=== PATIENT | male | born 1970 | race Caucasian/White ===

== ENCOUNTER 2016-12-15 10:25 | Emergency (ER) | payer SELFPAY ==
--- NOTE | 2016-12-15 11:38 | ER Document Report ---
ED Neck/Back Problem - General Chief Complaint: Neck Pain >24hrs old Stated Complaint: NECK PAIN Time Seen by Provider: 12/15/16 11:24 Mode of Arrival: Ambulatory Information source: Patient Notes: 46-year-old male presents to ED for severe neck pain this morning. He states he had surgery about a year ago with rods and pins in his neck for shoulder pain with numbness and tingling down his arms. He states he was got up this morning he was fine and then on his way to the work the pain was so bad that he felt like he was dizzy had hot and cold flashes and felt like he was going to pass out. He did not denies any fevers. Denies any injuries. TRAVEL OUTSIDE OF THE [place] IN LAST 30 DAYS: No - HPI Patient complains to provider of: Pain, Neck Onset: This morning Onset: Sudden Timing: Waxing and waning Quality of pain: Sharp, Stabbing Severity: Severe Pain Level: 5 Recent injury: No Associated symptoms: Other - Neck pain causing dizziness and hot and cold flashes Exacerbated by: Movement of neck - And palpation to the right side of the spine Relieved by: Nothing Similar symptoms previously: No Recently seen / treated by doctor: No - Related Data Allergies/Adverse Reactions: No Known Allergies Allergy (Verified 12/15/16 10:38) Past Medical History - General Information source: Patient - Social History Smoking Status: Current Every Day Smoker - Pack per day Cigarette use (# per day): Yes Smoking Education Provided: Yes - Less than 2 minutes Frequency of alcohol use: Heavy - 2 beers a day 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 Lives with: Spouse/Significant other Family History: Reviewed & Not Pertinent Patient has suicidal ideation: No Patient has homicidal ideation: No - Past Medical History Cardiac Medical History: Reports: Hx Hypercholesterolemia, Hx Hypertension Pulmonary Medical History: Reports: None EENT Medical History: Reports: None Neurological Medical History: Reports: None Endocrine Medical History: Reports: None Renal/ Medical History: Reports: None Malignancy Medical History: Reports None GI Medical History: Reports: None Musculoskeltal Medical History: Reports Hx Arthritis, Reports Hx Musculoskeletal Deformity, Reports Hx Musculoskeletal Trauma Skin Medical History: Reports None Psychiatric Medical History: Reports: None Traumatic Medical History: Reports: None Infectious Medical History: Reports: None Past Surgical History: Reports: Hx Orthopedic Surgery - L5-S1 laminectomy - Immunizations Hx Diphtheria, Pertussis, Tetanus Vaccination: No Review of Systems - Review of Systems Constitutional: No symptoms reported EENT: No symptoms reported Cardiovascular: No symptoms reported Respiratory: No symptoms reported Gastrointestinal: No symptoms reported Genitourinary: No symptoms reported Male Genitourinary: No symptoms reported Musculoskeletal: Muscle stiffness, Neck pain Skin: No symptoms reported Hematologic/Lymphatic: No symptoms reported Neurological/Psychological: No symptoms reported -: Yes All other systems reviewed and negative Physical Exam - Vital signs Vitals: Temp Pulse Resp BP Pulse Ox 97.9 F 95 18 192/120 H 97 12/15/16 10:37 12/15/16 10:37 12/15/16 10:37 12/15/16 10:37 12/15/16 10:37 Interpretation: Normal - General General appearance: Appears well, Alert - HEENT Head: Normocephalic, Atraumatic Eyes: Normal Pupils: PERRL - Respiratory Respiratory status: No respiratory distress Chest status: Nontender Breath sounds: Normal Chest palpation: Normal - Cardiovascular Rhythm: Regular Heart sounds: Normal auscultation Murmur: No - Abdominal Inspection: Normal Distension: No distension Bowel sounds: Normal Tenderness: Nontender Organomegaly: No organomegaly - Back Back: Normal, Tender - Cervical area, Vertebra tenderness - Cervical area. No: Deformity/step-off, CVA tenderness, Scars, Scoliosis, Wounds - Extremities General upper extremity: Normal inspection, Nontender, Normal color, Normal ROM , Normal temperature General lower extremity: Normal inspection, Nontender, Normal color, Normal ROM , Normal temperature, Normal weight bearing. No: Alba's sign - Neurological Neuro grossly intact: Yes Cognition: Normal Orientation: AAOx4 Garrett Coma Scale Eye Opening: Spontaneous Garrett Coma Scale Verbal: Oriented [place] Coma Scale Motor: Obeys Commands Garrett Coma Scale Total: 15 Speech: Normal Motor strength normal: LUE, RUE, LLE, RLE Sensory: Normal - Psychological Associated symptoms: Normal affect, Normal mood - Skin Skin Temperature: Warm Skin Moisture: Dry Skin Color: Normal Course - Re-evaluation Re-evalutation: 12/15/16 12:[address] with patient. He has no acute injuries noted. Patient will be instructed to follow-up with his surgeon who did his surgery last year. Patient will be discharged home with instructions to take ibuprofen. - Vital Signs Vital signs: Temp Pulse Resp BP Pulse Ox 98.1 F 80 14 180/90 H 100 12/15/16 12:51 12/15/16 12:51 12/15/16 12:51 12/15/16 12:51 12/15/16 12:51 - Diagnostic Test Radiology reviewed: Image reviewed, Reports reviewed Discharge - Discharge Clinical Impression: Neck pain Condition: Stable Disposition: HOME, SELF-CARE Instructions: Family Physicians / Practices Additional Instructions: You were seen today for neck pain. Your CT does not show any new changes or injuries. You will be discharged home today you need to call your surgeon who did your neck surgery when you go home to schedule a follow-up appointment due to the pain in your neck. You need to use ibuprofen or aspirin for the discomfort or you can use Aspercreme. A written report of your CT as well as a CD of your CT will be given to you free to follow-up with your primary doctor. USE OF [id number] IBUPROFEN: Ibuprofen (Advil, Nuprin, Medipren, Motrin IB) is a medication for fever and pain control. In addition, it has anti- inflammatory effects which may be beneficial, especially in the treatment of injuries. It's best to take ibuprofen with food. Persons with ulcer disease or allergy to aspirin should notify their physician of this before taking ibuprofen. Ibuprofen can be given every four to six hours, for a total of four doses daily. Age Pain or fever dose Antiinflammatory dose 6-8 yr 200 mg (1 tab) 200 mg (1 tab) 9-11 yr 200 mg (1 tab) 200-400 mg (1-2 tab) 11-14 yr 200-400 mg (1-2 tab) 400 mg (2 tab) 15-adult 400 mg (2 tab) 600 mg (3 tab) USE OF TYLENOL (ACETAMINOPHEN): Acetaminophen may be taken for pain relief or fever control. It's much safer than aspirin, offering a wider range of "safe" dosages. It is safe during . Some brand names are Tylenol, Panadol, Datril, Anacin 3, Tempra, and Liquiprin. Acetaminophen can be repeated every four hours. The following are maximum recommended dosages: WEIGHT Dose Drops Elixir Chewable( 80mg) (LBS.) drprs=droppers tsp=teaspoon 6 40 mg 0.4 ml (1/2) 6-11 80 mg 0.8 ml (full) tsp 1 tab 12-16 120 mg 1 1/2 drprs 3/4 tsp 1 1/2 tabs 17-23 160 mg 2 drprs 1 tsp 2 tabs 24-30 240 mg 3 drprs 1 1/2 tsp 3 tabs 30-35 320 mg 2 tsp 4 tabs 36-41 360 mg 2 1/4 tsp 4 1/2 tabs 42-47 400 mg 2 1/2 tsp 5 tabs 48-53 480 mg 3 tsp 6 tabs 54-59 520 mg 3 1/4 tsp 6 1/2 tabs 60-64 560 mg 3 1/2 tsp 7 tabs 65-70 600 mg 3 3/4 tsp 7 1/2 tabs 71-76 640 mg 4 tsp 8 tabs 77-82 720 mg 4 1/2 tsp 9 tabs 83-88 800 mg 5 tsp 10 tabs >89 pounds or adults 650 mg to 900 mg Acetaminophen can be repeated every four hours. Maximum dose not to exceed 4000 mg a day. These maximum recommended dosages are slightly higher than the dosages written on the product container, but these dosages are very safe and below the toxic dosage for acetaminophen. ICE PACKS: Apply ice packs frequently against the painful area. Many different schedules are recommended, such as "20 minutes on, 20 minutes off" or "one hour ice, two hours rest." If you need to work, you may need to go longer between ice treatments. You should plan to have the area ice packed AT LEAST one fourth of the time. The ice should be applied over the wrap, tape, or splint, or over a layer of cloth -- not directly against the skin. Some ice bags have a built-in cloth and can be put directly on the skin. WARM PACKS: After approximately two days, apply gentle heat (such as a heating pad or hot water bottle) for about 20 to 30 minutes about every two hours -- at least four times daily. Warmth and elevation will help you make a more rapid recovery , and will ease the pain considerably. Do not use HOT heat, and never apply heat for longer than 30 minutes. The continuous heat can invisibly damage skin and muscles -- even when no burn is seen on the surface. Damaged muscles can make you MORE sore. FOLLOW-UP CARE: If you have been referred to a physician for follow-up care, call the physician s office for an appointment as you were instructed or within the next two days. If you experience worsening or a significant change in your symptoms, notify the physician immediately or return to the Emergency Department at any time for re-evaluation. Forms: Elevated Blood Pressure, Smoking Cessation Education, Parent Work Note, Return to Work
--- NOTE | 2016-12-15 12:31 | RADIOLOGY REPORT (SQ) ---
EXAM DESCRIPTION: CT CERVICAL SPINE WITHOUT COMPLETED DATE/TIME: 12/15/2016 11:58 am REASON FOR STUDY: severe pain to neck COMPARISON: None. TECHNIQUE: Axial images acquired through the cervical spine without intravenous contrast. Images re viewed with lung, soft tissue and bone windows. Reconstructed coronal and sagittal MPR images review ed. Images stored on PACS. All CT scanners at this facility use dose modulation, iterative reconstruction, and/or weight based d osing when appropriate to reduce radiation dose to as low as reasonably achievable (ALARA). [facility]: Dose Right [facility]: CareDose [facility]: Dose Right [facility]: Teradose 4D [facility]: Smart Healcerion RADIATION DOSE: Up-to-date CT equipment and radiation dose reduction techniques were employed. CTDIv ol: 20.9 mGy. DLP: 437 mGy-cm. mGy. LIMITATIONS: None. FINDINGS: ALIGNMENT: Anatomic. MINERALIZATION: Normal. VERTEBRAL BODIES: No fractures or dislocation. DISCS: Craniocervical junction, C1-2, C2-3, C3-4 are unremarkable. At C4-5, minimal right paracentral disc bulging is present on axial image 40. No central stenosis. Mild right foraminal narrowing. No left foraminal narrowing. At C5-6, very mild diffuse posterior disc bulging is present without central stenosis or foraminal en croachment. At C6-7, patient is post fusion with hardware. Disc space prosthesis. Minimal posterior disc bulge and bony spurring is present without central stenosis. Mild bilateral foraminal narrowing from facet and uncovertebral hypertrophy. No lucency around the hardware worrisome for loosening. C7-T1 and T1-2 are unremarkable. Stomach FACETS, LATERAL MASSES, POSTERIOR ELEMENTS: No fractures. No dislocation. No acute findings. HARDWARE: Fusion at C6-7 as above. VISUALIZED RIBS: No fractures. LUNG APICES AND SOFT TISSUES: No significant or acute findings. OTHER: No other significant finding. IMPRESSION: No acute fracture or malalignment. Post fusion with hardware at C6-7. Mild bilateral foraminal narrowing at this level. TECHNICAL DOCUMENTATION: JOB ID: [id number] Quality ID # [id number]: Final reports with documentation of one or more dose reduction techniques (e.g., Au tomated exposure control, adjustment of the mA and/or kV according to patient size, use of iterative reconstruction technique) 2010 [employer] All Rights Reserved
[2016-12-15 12:53] VITALS: BP 180/90
== END 2016-12-15 12:53 | disposition home or self-care (01) ==
LOC: ER 10:25
DX: M54.2 Cervicalgia (principal); M25.519 Pain in unspecified shoulder; R42 Dizziness and giddiness; F17.210 Nicotine dependence, cigarettes, uncomplicated
CPT/HCPCS: 72125; 99284

== ENCOUNTER 2017-08-18 21:29 | Observation (INO) | payer BC ==
--- NOTE | 2017-08-18 22:06 | RADIOLOGY REPORT (SQ) ---
EXAM DESCRIPTION: CT HEAD WITHOUT COMPLETED DATE/TIME: 08/18/2017 9:54 pm REASON FOR STUDY: stroke alert COMPARISON: 2016 TECHNIQUE: Axial images acquired through the brain without intravenous contrast. Images reviewed wi th bone, brain and subdural windows. Additional sagittal and coronal reconstructions were generated. Images stored on PACS. All CT scanners at this facility use dose modulation, iterative reconstruction, and/or weight based d osing when appropriate to reduce radiation dose to as low as reasonably achievable (ALARA). [facility]: Dose Right [facility]: CareDose [facility]: Dose Right [facility]: Teradose 4D [facility]: Smart SpectraRep RADIATION DOSE: CT Rad equipment meets quality standard of care and radiation dose reduction techniq ues were employed. CTDIvol: 53.2 mGy. DLP: 911 mGy-cm. mGy. LIMITATIONS: None. FINDINGS: VENTRICLES: Normal size and contour. CEREBRUM: No masses. No hemorrhage. No midline shift. No evidence for acute infarction. Normal gra y/white matter differentiation. No areas of low density in the white matter. CEREBELLUM: No masses. No hemorrhage. No alteration of density. No evidence for acute infarction. EXTRAAXIAL SPACES: No fluid collections. No masses. ORBITS AND GLOBE: No intra- or extraconal masses. Normal contour of globe without masses. CALVARIUM: No fracture. PARANASAL SINUSES: Extensive ethmoid and maxillary sinus disease. SOFT TISSUES: No mass or hematoma. OTHER: No other significant finding. IMPRESSION: NORMAL BRAIN CT WITHOUT CONTRAST. EVIDENCE OF ACUTE STROKE: NO. COMMENT: Pertinent positive or negative findings of the imaging study reported as a CRITICAL EXAM t o ER PROVIDER at22:00 on 08/18/2017. Category of Critical Exam: Stroke alert Quality ID # [id number]: Final reports with documentation of one or more dose reduction techniques (e.g., Au tomated exposure control, adjustment of the mA and/or kV according to patient size, use of iterative reconstruction technique) TECHNICAL DOCUMENTATION: JOB ID: [id number] All Rights Reserved Reading location - IP/workstation name: [email or web address]
--- NOTE | 2017-08-18 22:07 | RADIOLOGY REPORT (SQ) ---
EXAM DESCRIPTION: CHEST SINGLE VIEW COMPLETED DATE/TIME: 08/18/2017 9:54 pm REASON FOR STUDY: stroke alert COMPARISON: None. EXAM PARAMETERS: NUMBER OF VIEWS: One view. TECHNIQUE: Single frontal radiographic view of the chest acquired. RADIATION DOSE: NA LIMITATIONS: None. FINDINGS: LUNGS AND PLEURA: No opacities, masses or pneumothorax. No pleural effusion. MEDIASTINUM AND HILAR STRUCTURES: No masses. Contour normal. HEART AND VASCULAR STRUCTURES: Heart normal in size. Normal vasculature. BONES: No acute findings. HARDWARE: None in the chest. OTHER: No other significant finding. IMPRESSION: NO ACUTE RADIOGRAPHIC FINDING IN THE CHEST. TECHNICAL DOCUMENTATION: JOB ID: [id number] [employer]- All Rights Reserved Reading location - IP/workstation name: [email or web address]
[2017-08-18 22:19] LABS: ABSOLUTE BASOPHILS # (AUTO) 0.1 10^3/uL (0.0-0.2); ABSOLUTE EOSINOPHILS # (AUTO) 0.2 10^3/uL (0.0-0.6); ABSOLUTE MONOCYTES (AUTO) 0.9 10^3/uL (0.1-1.4); ABSOLUTE NEUT (AUTO) 7.3 10^3/uL (1.7-8.2); BASOPHILS % (AUTO) 0.8 % (0-2); EOSINOPHILS % (AUTO) 2.1 % (0-6); HEMATOCRIT 44.3 % (37.9-51.0); HEMOGLOBIN 15.6 g/dL (13.5-17.0); LYMPHOCYTES % (AUTO) 18.7 % (13-45); MEAN CORPUSCULAR HEMOGLOBIN 32.1 pg (27.0-33.4); MEAN CORPUSCULAR HGB CONC 35.3 g/dL (32.0-36.0); MEAN CORPUSCULAR VOLUME 91 fl (80-97); MONOCYTES % (AUTO) 8.6 % (3-13); PLATELET COUNT 164 10^3/uL (150-450); RED BLOOD COUNT 4.88 10^6/uL (4.35-5.55); RED CELL DISTRIBUTION WIDTH 14.9 % (11.5-14.0); SEGMENTED NEUTROPHILS % (AUTO) 69.8 % (42-78); TOTAL CELLS COUNTED % (AUTO) 100 %; WHITE BLOOD COUNT 10.5 10^3/uL (4.0-10.5)
[2017-08-18] MEDS ORDERED: METOCLOPRAMIDE HCL INJ/PF 10 MG/2 ML SDV IV ONE (22:19)
[2017-08-18] MEDS ORDERED: DIPHENHYDRAMINE HCL 50 MG/ML VIAL IV ONE (22:19)
--- NOTE | 2017-08-18 22:19 | ER Document Report ---
ED General - General Chief Complaint: S/S of Possible Stroke Stated Complaint: FACIAL NUMBNESS Mode of Arrival: Ambulatory Information source: Patient Notes: This is a 47-year-old man with a history of high blood pressure, active smoking who presents to the emergency room with a right-sided headache along with some right facial numbness. Patient states he awoke this morning with the headache. He states he went to work and started having numbness to the right face at around 3 PM. He states it did not go away so he came in this evening. TRAVEL OUTSIDE OF THE [place] IN LAST 30 DAYS: No - HPI Onset: This morning Onset/Duration: Gradual Quality of pain: No pain Severity: None Pain Level: Denies Associated symptoms: denies: Chills, Headache, Shortness of breath Exacerbated by: Denies Relieved by: Denies Similar symptoms previously: No Recently seen / treated by doctor: No - Related Data Allergies/Adverse Reactions: No Known Allergies Allergy (Verified 12/15/16 10:38) Past Medical History - General Information source: Patient - Social History Smoking Status: Current Every Day Smoker Cigarette use (# per day): Yes - 1 pack per day Chew tobacco use (# tins/day): No Smoking Education Provided: No Frequency of alcohol use: None Drug Abuse: None Lives with: Family Family History: Reviewed & Not Pertinent Patient has suicidal ideation: No Patient has homicidal ideation: No - Past Medical History Cardiac Medical History: Reports: Hx Hypercholesterolemia, Hx Hypertension Renal/ Medical History: Denies: Hx Peritoneal Dialysis Musculoskeltal Medical History: Reports Hx Arthritis, Reports Hx Musculoskeletal Deformity, Reports Hx Musculoskeletal Trauma Past Surgical History: Reports: Hx Orthopedic Surgery - L5-S1 laminectomy - Immunizations Hx Diphtheria, Pertussis, Tetanus Vaccination: No Review of Systems - Review of Systems Constitutional: denies: Chills, Fever EENT: No symptoms reported Cardiovascular: No symptoms reported Respiratory: No symptoms reported Gastrointestinal: No symptoms reported Genitourinary: No symptoms reported Male Genitourinary: No symptoms reported Musculoskeletal: No symptoms reported Skin: No symptoms reported Hematologic/Lymphatic: No symptoms reported Neurological/Psychological: See HPI Physical Exam - Vital signs Vitals: Temp Pulse Resp BP Pulse Ox 98.1 F 96 20 177/99 H 96 08/18/17 21:42 08/18/17 21:42 08/18/17 21:42 08/18/17 21:42 08/18/17 21:42 Notes: Physical exam: GENERAL: 47-year-old man, alert and oriented 3, no acute distress HEAD: Atraumatic, normocephalic. EYES: Pupils equal round and reactive to light, extraocular movements intact, sclera anicteric, conjunctiva are normal. ENT: TMs normal, nares patent, oropharynx clear without exudates. Moist mucous membranes. NECK: Normal range of motion, supple without obvious mass or JVD. LUNGS: Breath sounds clear to auscultation bilaterally and equal. No wheezes rales or rhonchi. HEART: Regular rate and rhythm without murmurs, rubs or gallops. ABDOMEN: Soft, normoactive bowel sounds. No tenderness to palpation. No guarding, no rebound. No masses appreciated. EXTREMITIES: Normal range of motion, no pitting or edema. No clubbing or cyanosis. NEUROLOGICAL: Cranial nerves II through XII grossly intact except for some subjective numbness to the right side. He is alert and keenly responsive, he knows the month and age, he is able to open and close his eyes and face, his gaze is normal, visual mendez are intact, there is no facial palsy, there is no drift with upper or lower extremities, finger to nose is good, sensory shows possible subjective numbness to the right side of the face, picture description , object naming and sentence reading are good, there is no dysarthria, there is no extinction or inattention. NIH equals 1 PSYCH: Normal mood, normal affect. SKIN: Warm, Dry, normal turgor, no rashes or lesions noted. Course - Re-evaluation Re-evalutation: 08/18/17 22:18 Note: Patient's symptoms started approximately 7 hours ago. His NIH score is 1. He does not meet criteria for thrombolytics. - Vital Signs Vital signs: Temp Pulse Resp BP Pulse Ox 98.1 F 94 19 160/103 H 90 L 08/18/17 21:42 08/18/17 22:05 08/18/17 23:01 08/18/17 23:01 08/18/17 23:01 - Laboratory Result Diagrams: 08/18/17 22:00 08/18/17 22:00 Laboratory results interpreted by me: 05/24/18 05/24/18 22:00 22:00 RDW 14.9 H ALT 77 H Creatine Kinase 243 H - Diagnostic Test Radiology reviewed: Reports reviewed - CT of the head shows no acute stroke or bleed. - EKG Interpretation by Mn Rate: Normal Rhythm: NSR - EKG shows normal sinus rhythm with a ventricular rate of 93, no acute ST-T wave changes Critical Care Note - Critical Care Note Total time excluding time spent on procedures (mins): 60 Discharge - Discharge Clinical Impression: TIA/CVA Condition: Stable Disposition: ADMITTED OBSERVATION Admitting Provider: Hospitalist - Dr Castillo Unit Admitted: Telemetry
[2017-08-18 22:21] LABS: INTERNATIONAL RATION (INR) 0.92; PARTIAL THROMBOPLASTIN TIME 29.7 SEC (23.5-35.8)
[2017-08-18 22:24] LABS: PROTHROMBIN TIME 12.8 SEC (11.4-15.4)
[2017-08-18 22:34] LABS: ALANINE AMINOTRANSFERASE 77 U/L (21-72); ALKALINE PHOSPHATASE 47 U/L (38-126); ANION GAP 9 (5-19); ASPARTATE AMINO TRANSFERASE 40 U/L (17-59); BILIRUBIN,DIRECT 0.3 mg/dL (0.0-0.4); BILIRUBIN,TOTAL 0.7 mg/dL (0.2-1.3); BLOOD UREA NITROGEN 12 mg/dL (7-20); CARBON DIOXIDE 29 mmol/L (22-30); CHLORIDE 99 mmol/L (98-107); CREATINE KINASE 243 U/L (55-170); GLUCOSE 103 mg/dL (75-110); POTASSIUM 3.7 mmol/L (3.6-5.0); SODIUM 137.2 mmol/L (137-145); TOTAL PROTEIN 6.6 g/dL (6.3-8.2)
[2017-08-18 22:45] LABS: CREATINE KINASE MB 2.59 ng/mL (<4.55); TROPONIN I < 0.012 ng/mL
[2017-08-18] MEDS ORDERED: MORPHINE SULFATE 10 MG/ML INJ IV ONE (23:30)
[2017-08-18] MEDS ORDERED: MAGNESIUM HYDROXIDE SUSP 30 ML UDCUP PO PRN (23:36)
[2017-08-18] MEDS ORDERED: DOCUSATE SODIUM 100 MG CAPSULE PO PRN (23:36)
--- NOTE | 2017-08-18 23:36 | RADIOLOGY REPORT (SQ) ---
EXAM DESCRIPTION: CT HEAD ANGIOGRAPHY WITHOUT THEN WITH IV CONTRAST CLINICAL HISTORY: 47 years Male, right sided headache COMPARISON: CT head, same day.. TECHNIQUE: IV contrast. Coronal and sagittal reformat. 3-D reconstruction. This exam was performed according to our departmental dose-optimization program, which includes automated exposure control, adjustment of the mA and/or kV according to patient size and/or use of iterative reconstruction technique. FINDINGS: CTA of the brain shows iliamna of [place] to appear intact; no aneurysm, and no occlusion. There is suboptimal arterial enhancement. No hemorrhage or infarct. No mass, mass effect, or midline shift. Moderate right and mild left maxillary mucosal thickening. Small ethmoid mucosal thickening. Brain and extra-axial structures appear otherwise intact. IMPRESSION: No acute findings.
[2017-08-18] MEDS ORDERED: ATORVASTATIN CALCIUM 80 MG TABLET PO ONE (23:45)
[2017-08-18] MEDS ORDERED: ATORVASTATIN CALCIUM 80 MG TABLET PO SCH (23:45)
[2017-08-18] MEDS ORDERED: NICOTINE 14 MG/24 HR PATCH.TD24 TD PRN (23:48)
[2017-08-19] MEDS: ACETAMINOPHEN 325 MG TABLET PO PRN ×2 (02:52→10:10)
[2017-08-19] MEDS ORDERED: CHLORPHENIRAMINE MALEATE 4 MG TABLET PO ONE (05:29)
--- NOTE | 2017-08-19 05:29 | PDOC H&P ---
History of Present Illness Admission Date/PCP: 08/18/17 23:45 Patient complains of: Headache and right facial numbness History of Present Illness: TONY TREVIZO is a 47 year old male with a history of hypertension, dyslipidemia and tobacco. Patient presents with 12 hours of headache and 2 hours of right facial numbness, prompting evaluation emergency room. He is found to have uncontrolled blood pressure of 180/94 and an otherwise unremarkable workup. He denies palpitations, confusion, focal weakness, previous episode or new medications. He admits acute on chronic sinusitis and several days several days of medication noncompliance. He is referred to the hospitalist for admission. Past Medical History Cardiac Medical History: Reports: Hyperlipidema, Hypertension Pulmonary Medical History: Reports: Other EENT Medical History: Reports: Other - Acute on chronic sinusitis Musculoskeltal Medical History: Reports: Arthritis Psychiatric Medical History: Reports: Tobacco Dependency Past Surgical History Past Surgical History: Reports: Orthopedic Surgery - L5-S1 laminectomy Social History Information Source: Patient Lives with: Family Smoking Status: Current Every Day Smoker Frequency of Alcohol Use: Social Drugs: None - Advance Directive Resuscitation Status: Full Code Family History Family History: CVA, DM Parental Family History Reviewed: Yes Children Family History Reviewed: Yes Sibling(s) Family History Reviewed.: Yes Medication/Allergy Home Medications: Amlodipine Besylate [Amlodipine Besylate] 1 tab PO DAILY 08/19/17 Zolpidem Tartrate [Zolpidem Tartrate] 1 tab PO HSP PRN 08/19/17 Allergies/Adverse Reactions: No Known Allergies Allergy (Verified 12/15/16 10:38) Review of Systems Constitutional: PRESENT: as per HPI, fatigue, headache(s). ABSENT: chills, night sweats, weakness, weight gain Eyes: ABSENT: visual disturbances Ears: PRESENT: as per HPI, other - Right-sided sinusitis Cardiovascular: ABSENT: chest pain, dyspnea on exertion, edema, orthropnea, palpitations Respiratory: ABSENT: cough, hemoptysis Gastrointestinal: ABSENT: abdominal pain, constipation, diarrhea, hematemesis, hematochezia, nausea, vomiting Genitourinary: ABSENT: dysuria, hematuria Musculoskeletal: ABSENT: joint swelling Integumentary: ABSENT: rash, wounds Neurological: PRESENT: as per HPI, numbness. ABSENT: abnormal gait, abnormal speech, confusion, dizziness, focal weakness, frequent falls, lack of coordination, memory loss, syncope, vertigo, weakness Psychiatric: ABSENT: anxiety, depression, homidical ideation, suicidal ideation Endocrine: ABSENT: cold intolerance, heat intolerance, polydipsia, polyuria Hematologic/Lymphatic: ABSENT: easy bleeding, easy bruising Physical Exam Vital Signs: Temp Pulse Resp BP Pulse Ox 98.4 F 85 20 158/93 H 95 08/19/17 01:36 08/19/17 01:36 08/19/17 01:36 08/19/17 01:38 08/19/17 01:36 General appearance: PRESENT: no acute distress, well-developed, well-nourished Head exam: PRESENT: atraumatic, normocephalic Eye exam: PRESENT: conjunctiva pink, EOMI, PERRLA. ABSENT: scleral icterus Ear exam: PRESENT: normal external ear exam Mouth exam: PRESENT: moist, tongue midline Neck exam: ABSENT: carotid bruit, JVD, lymphadenopathy, thyromegaly Respiratory exam: PRESENT: clear to auscultation gonzalez. ABSENT: rales, rhonchi, wheezes Cardiovascular exam: PRESENT: RRR. ABSENT: diastolic murmur, rubs, systolic murmur Pulses: PRESENT: normal dorsalis pedis pul Vascular exam: PRESENT: normal capillary refill GI/Abdominal exam: PRESENT: normal bowel sounds, soft. ABSENT: distended, guarding, mass, organolmegaly, rebound, tenderness Rectal exam: PRESENT: deferred Extremities exam: PRESENT: full ROM. ABSENT: calf tenderness, clubbing, pedal edema Neurological exam: PRESENT: alert, awake, oriented to person, oriented to place , oriented to time, oriented to situation, CN II-XII grossly intact. ABSENT: motor sensory deficit Psychiatric exam: PRESENT: appropriate affect, normal mood. ABSENT: homicidal ideation, suicidal ideation Skin exam: PRESENT: dry, intact, warm. ABSENT: cyanosis, rash Results Impressions: Chest X-Ray 08/18/17 21:45 IMPRESSION: NO ACUTE RADIOGRAPHIC FINDING IN THE CHEST. Head CT 08/18/17 21:45 IMPRESSION: NORMAL BRAIN CT WITHOUT CONTRAST. EVIDENCE OF ACUTE STROKE: NO. Head CTA 08/18/17 22:44 IMPRESSION: No acute findings. Assessment & Plan - Diagnosis (1) TIA (transient ischemic attack) Is this a current diagnosis for this admission?: Yes Plan: CVA care set, aspirin, Lipitor, permissive hypertension, follow-up MRI head (2) Hypertension Is this a current diagnosis for this admission?: Yes Plan: CRIS inhibitor initiated (3) Tobacco abuse Is this a current diagnosis for this admission?: Yes Plan: Tobacco Dependence patient received tobacco cessation counseling and offered nicotine replacement options (4) Noncompliance Is this a current diagnosis for this admission?: Yes Plan: Education (5) Sinusitis Is this a current diagnosis for this admission?: Yes Plan: Chlorpheniramine - Time Time Spent: 30 to 50 Minutes
[2017-08-19 05:57] LABS: CHOLESTEROL 150.33 mg/dL (0-200); CREATINE KINASE 154 U/L (55-170)
[2017-08-19] MEDS ORDERED: HEPARIN SOD (PORCINE) 5,000 UNIT/ML 1 ML SYRINGE SUBCUT SCH (06:00)
[2017-08-19 06:07] LABS: TRIGLYCERIDES 721 mg/dL (<150)
[2017-08-19 06:08] LABS: DIRECT LDL 51 mg/dL (<100)
--- NOTE | 2017-08-19 07:22 | EKG REPORT ---
SEVERITY:- ABNORMAL ECG - SINUS RHYTHM PROBABLE LEFT ATRIAL ABNORMALITY LEFT VENTRICULAR HYPERTROPHY BORDERLINE INFERIOR Q WAVES ST ELEV, PROBABLE NORMAL EARLY REPOL PATTERN BORDERLINE PROLONGED QT INTERVAL : Confirmed by: Lokesh Agarwal MD 19-Aug-2017 07:21:09
[2017-08-19] MEDS ORDERED: ASPIRIN 81 MG TABLET, ENT COATED PO SCH (10:00)
[2017-08-19] MEDS ORDERED: FLUTICASONE NASAL SPRAY 50 MCG/SPRY 120 SPRAY/16 GM NASL SCH (10:00)
--- NOTE | 2017-08-19 12:08 | RADIOLOGY REPORT (SQ) ---
EXAM DESCRIPTION: MRI HEAD WITHOUT COMPLETED DATE/TIME: 08/19/2017 11:45 am REASON FOR STUDY: R face numbness COMPARISON: CT brain 11/27/2015, 08/18/2017 CT angio brain 08/18/2017 TECHNIQUE: Multiplanar imaging includes non-contrasted T1, T2, FLAIR, and diffusion with ADC map seq uences. Images stored on PACS. LIMITATIONS: None. FINDINGS: ANATOMY: No developmental anomalies. Normal vascular flow voids. Pituitary fossa normal. CSF SPACES: Normal in size and contour. No hemorrhage. CEREBRUM: Sulci and gyri normal in size and contour. Normal white matter signal on FLAIR imaging. No evidence of hemorrhage, mass, or extraaxial fluid collection. POSTERIOR FOSSA: No signal alteration. No hemorrhage. No edema, masses or mass effect. Internal rishi tory canals, cerebello-pontine angles, mastoids normal. DIFFUSION IMAGING: Negative for acute or sub-acute infarction. ORBITS: No masses. Globes normal. PARANASAL SINUSES: Air-fluid level right maxillary sinus. Circumferential mucous membrane thickenin g right maxillary sinus and bilateral ethmoid air cells. Small amount of fluid in the bilateral mast oid air cells. OTHER: No other significant finding. IMPRESSION: NORMAL MRI OF THE BRAIN WITHOUT INTRAVENOUS GADOLINIUM CONTRAST. EVIDENCE OF ACUTE STROKE: NO. TECHNICAL DOCUMENTATION: JOB ID: [id number] [employer]- All Rights Reserved Reading location - IP/workstation name: [email or web address]
[2017-08-19 13:47] VITALS: BP 177/99
[2017-08-19] MEDS ORDERED: ATORVASTATIN CALCIUM 80 MG TABLET PO SCH (22:00)
--- NOTE | 2017-08-20 18:37 | PDOC DISCHARGE SUMMARY ---
General - Admit/Disc Date/PCP Admission Date/Primary Care Provider: 08/18/17 23:45 Discharge Date: 08/19/17 - Discharge Diagnosis (1) Hypertension Is this a current diagnosis for this admission?: Yes (2) Noncompliance Is this a current diagnosis for this admission?: Yes (3) Sinusitis Is this a current diagnosis for this admission?: Yes (4) Tobacco abuse Is this a current diagnosis for this admission?: Yes - Additional Information Resuscitation Status: Full Code Discharge Diet: Cardiac Discharge Activity: Activity As Tolerated Home Medications: Amlodipine Besylate 5 mg PO DAILY 08/19/17 Fluticasone Propionate [Flonase Nasal [place] 50 Mcg/[place] 16 gm] 1 spray NASL Q12 08/19/17 Lisinopril/Hydrochlorothiazide [Lisinopril-Hctz 20-25 mg Tab] 1 each PO DAILY Zolpidem Tartrate 10 mg PO QHS 08/19/17 History of Present Illness History of Present Illness: TONY TREVIZO is a 47 year old male with a history of hypertension, dyslipidemia and tobacco who presented to the ED with 12 hours of headache and 2 hours of right facial numbness. He is found to have uncontrolled blood pressure of 180/94 and an otherwise unremarkable workup, including normal head CT. He was admitted to the hospitalist service earlier today for further workup and management. Hospital Course Hospital Course: Patient was admitted to hospitalist service. He denied chest pain. His condition was thought likely due to uncontrolled blood pressure and noncompliance. Today he was also consider. That revealed no CVA. He was restarted on his blood pressure medications and his blood pressure improved when his symptoms improve. I believe his symptoms were secondary to hypertensive urgency. He is doing better now and is being discharged in stable condition. He is to follow-up with his PCP within 1 week. He is extensively counseled about medications compliance. He is also counseled about smoking cessation. Physical Exam Vital Signs: Temp Pulse Resp BP Pulse Ox 98.3 F 149 H 18 149/83 H 92 08/19/17 07:47 08/19/17 08:00 08/19/17 08:00 08/19/17 08:00 08/19/17 08:00 Intake & Output 08/18/17 08/19/17 08/20/17 06:59 06:59 06:59 Intake Total 505 Balance 505 Weight 113.7 kg GENERAL: Well-developed, no acute distress HEENT: Normocephalic/atraumatic NECK supple, no JVD CARDIOVASCULAR: RRR, normal S1-S2 LUNGS: CTA bilaterally ABDOMEN: Soft, NT, NL bowel sounds EXTREMITIES: No edema, clubbing, cyanosis NEUROLOGICAL: Alert, oriented x 3, nonfocal. Results Laboratory Results: 08/19/17 04:12 Triglycerides 721 H Cholesterol 150.33 LDL Cholesterol Direct 51 VLDL Cholesterol UNABLE TO CALCULATE HDL Cholesterol 27 L 08/19/17 08/19/17 08/19/17 04:12 04:12 10:00 Creatine Kinase 154 111 CK-MB (CK-2) 1.86 08/19/17 10:00 Creatine Kinase CK-MB (CK-2) 1.36 Impressions: Chest X-Ray 08/18/17 21:45 IMPRESSION: NO ACUTE RADIOGRAPHIC FINDING IN THE CHEST. Head CT 08/18/17 21:45 IMPRESSION: NORMAL BRAIN CT WITHOUT CONTRAST. EVIDENCE OF ACUTE STROKE: NO. Head CTA 08/18/17 22:44 IMPRESSION: No acute findings. Head MRI 08/19/17 08:11 IMPRESSION: NORMAL MRI OF THE BRAIN WITHOUT INTRAVENOUS GADOLINIUM CONTRAST. EVIDENCE OF ACUTE STROKE: NO. Qualifiers - * PATIENT BEING DISCHARGED WITH ANY OF THE FOLLOWING DIAGNOSIS: No
== END 2017-08-19 14:07 | disposition home or self-care (01) ==
LOC: ER 21:29 → EH 23:45 → 3N 08-19 01:26
PROVIDERS: ADMIT Internal Medicine; ATTEND Internal Medicine
DX: I10 Essential (primary) hypertension (principal); Z91.19 Patient's noncompliance with other medical treatment and regimen; J32.9 Chronic sinusitis, unspecified; R51 Headache; R20.0 Anesthesia of skin; F17.210 Nicotine dependence, cigarettes, uncomplicated; Z91.14 Patient's other noncompliance with medication regimen; Z82.3 Family history of stroke; Z83.3 Family history of diabetes mellitus; Z98.890 Other specified postprocedural states
CPT/HCPCS: 93005; 99291; 96374; 96375; 36415 ×2; 82553 ×2; 82962; 82550 ×2; 84443; 85025; 85610; 85730; 80053; 84484; 83036; 80061; 70551; 71045; 70450; 70496; 93010; G0378 ×2; J1200; J2765; J2270; J3490

== ENCOUNTER 2019-03-06 16:15 | Emergency (ER) | payer BC ==
[2019-03-06] MEDS ORDERED: KETOROLAC TROMETHAMINE 60 MG/2 ML SDV IM ONE (17:29)
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
[2019-03-06 18:49] VITALS: BP 149/102
== END 2019-03-06 19:12 | disposition home or self-care (01) ==
LOC: ER 16:15
DX: S13.9XXA Sprain of joints and ligaments of unspecified parts of neck, initial encounter (principal); S09.90XA Unspecified injury of head, initial encounter; M54.2 Cervicalgia; R51 Headache; R20.0 Anesthesia of skin; X58.XXXA Exposure to other specified factors, initial encounter; I10 Essential (primary) hypertension
CPT/HCPCS: 99284; 96374; 70450; 72125; J1885

== ENCOUNTER 2019-08-13 17:36 | Emergency (ER) | payer BC ==
[2019-08-13] MEDS ORDERED: HYDROCODONE/ACETAMINOPHEN 5-325 MG TABLET PO ONE (18:18)
[2019-08-13] MEDS ORDERED: CYCLOBENZAPRINE HCL 10 MG TABLET PO ONE (18:18)
--- NOTE | 2019-08-13 18:19 | ER Document Report ---
HPI - HPI Patient complains to provider of: Right shoulder pain Time Seen by Provider: 08/13/19 18:11 Onset/Duration: Gradual Quality of pain: Throbbing Pain Level: 4 Context: 49-year-old male past medical history significant for hypertension presents to the emergency room complaining of right shoulder pain for the past 3 days states he was doing yard work this weekend loading and unloading shingles into the back of a trailer, loaded his boat yesterday but denied any direct trauma or injury to the shoulder. History of a previous rotator cuff tear denies ever having surgery for it. Patient is right-handed. States is been taking Tylenol and ibuprofen without relief. Denies any numbness or tingling. Associated Symptoms: None Exacerbated by: Movement Relieved by: Remaining still Similar symptoms previously: Yes - Right rotator cuff tear several years ago Recently seen / treated by doctor: No - ROS ROS below otherwise negative: Yes - CONSTITUTIONAL Constitutional: DENIES: Fever - NEURO Neurology: DENIES: Weakness - CARDIOVASCULAR Cardiovascular: DENIES: Chest pain - RESPIRATORY Respiratory: DENIES: Trouble Breathing - REPRODUCTIVE Reproductive: DENIES: : - MUSCULOSKELETAL Musculoskeletal: REPORTS: Extremity pain - DERM Skin Color: Normal Skin Problems: None Past Medical History - General Information source: Patient - Social History Smoking Status: Current Every Day Smoker Frequency of alcohol use: Occasional Drug Abuse: None Lives with: Family Family History: CVA, DM Patient has homicidal ideation: No - Past Medical History Cardiac Medical History: Reports: Hx Hypercholesterolemia, Hx Hypertension Renal/ Medical History: Denies: Hx Peritoneal Dialysis Musculoskeletal Medical History: Reports Hx Arthritis, Reports Hx Musculoskeletal Deformity, Reports Hx Musculoskeletal Trauma Psychiatric Medical History: Denies: Hx Depression Past Surgical History: Reports: Hx Orthopedic Surgery - L5-S1 laminectomy - Immunizations Hx Diphtheria, Pertussis, Tetanus Vaccination: No Vertical Provider Document - CONSTITUTIONAL Agree With Documented VS: Yes Exam Limitations: No Limitations General Appearance: WD/WN, Moderate Distress - INFECTION CONTROL TRAVEL OUTSIDE OF THE [place] IN LAST 30 DAYS: No - HEENT HEENT: Atraumatic, Normocephalic - NECK Neck: Normal Inspection, Supple - RESPIRATORY Respiratory: Breath Sounds Normal, No Respiratory Distress, Chest Non-Tender. negative: Rales, Rhonchi, Wheezing - CARDIOVASCULAR Cardiovascular: Regular Rate, Regular Rhythm, No Murmur. negative: Tachycardia, Bradycardia - BACK Back: Normal Inspection. negative: CVA Tenderness-Right, CVA Tenderness-Left - MUSCULOSKELETAL/EXTREMETIES Musculoskeletal/Extremeties: Tender - Tenderness on palpation to the right AC joint, painful range of motion with flexion, extension, abduction, adduction. Painful range of motion with internal and external rotation of the right shoulder. No obvious deformity noted. - NEURO Level of Consciousness: Awake, Alert, Appropriate Motor/Sensory: No Motor Deficit, No Sensory Deficit Notes: Positive right radial pulse. Cap refill less than 3 seconds. - DERM Integumentary: Warm, Dry, No Rash Course - Re-evaluation Re-evalutation: 08/13/19 19:06 Patient is resting comfortably with decreased pain. Reviewed x-ray results with patient. Counseled to rest, heat, 20 minutes 3 times a day. Take medications as prescribed. Outpatient follow-up with orthopedist business operations coordinator orthopedist was provided. Patient was given strict return to the emergency room guidelines. Return to the emergency room for any new or worsening symptoms. All questions were answered. Patient verbalized understanding and agrees with plan of care. - Vital Signs Vital signs: Temp Pulse Resp BP Pulse Ox 99.0 F 101 H 18 173/105 H 96 08/13/19 18:09 08/13/19 17:41 08/13/19 17:41 08/13/19 17:41 08/13/19 17:41 - Diagnostic Test Radiology reviewed: Reports reviewed Discharge - Discharge Clinical Impression: Right shoulder strain Condition: Stable Disposition: HOME, SELF-CARE Instructions: Exercise Program for the Shoulder ([facility]), Shoulder Injury ([facility]) Additional Instructions: Heat 20 minutes 3 times a day. Medications as prescribed. Outpatient follow-up with orthopedist as discussed. Return for any new or worsening symptoms. Prescriptions: Cyclobenzaprine HCl [Flexeril 10 mg Tablet] 10 mg PO TIDP PRN #15 tab PRN Reason: Meloxicam [Mobic 7.5 Mg Tablet] 7.5 mg PO DAILY 14 Days #14 tablet Referrals: MEREDITH PRADHAN DO [ACTIVE STAFF] - Follow up in 3-5 days (Call tomorrow for an outpatient follow-up appointment.)
--- NOTE | 2019-08-13 18:55 | RADIOLOGY REPORT (SQ) ---
EXAM DESCRIPTION: SHOULDER RIGHT 2 OR MORE VIEWS IMAGES COMPLETED DATE/TIME: 08/13/2019 6:48 pm REASON FOR STUDY: pain COMPARISON: None. NUMBER OF VIEWS: Three views. TECHNIQUE: Internal rotation, external rotation, and Y view images acquired of the right shoulder. LIMITATIONS: None. FINDINGS: MINERALIZATION: Normal. BONES: No acute fracture. No worrisome bone lesions. JOINTS: No dislocation. Bony overgrowth of the distal clavicle. VISUALIZED LUNGS AND RIBS: No pneumothorax. No rib fracture. SOFT TISSUES: No radiopaque foreign body. OTHER: No other significant finding. IMPRESSION: Degenerative joint changes in the AC joint. No other significant finding. TECHNICAL DOCUMENTATION: JOB ID: [id number] 2010 [email or web address]- All Rights Reserved Reading location - IP/workstation name: [email or web address]
[2019-08-13 19:11] VITALS: BP 146/96
== END 2019-08-13 19:15 | disposition home or self-care (01) ==
LOC: ER 17:36
DX: S46.911A Strain of unspecified muscle, fascia and tendon at shoulder and upper arm level, right arm, initial encounter (principal); M25.511 Pain in right shoulder; X58.XXXA Exposure to other specified factors, initial encounter; Y93.H2 Activity, gardening and landscaping; F17.200 Nicotine dependence, unspecified, uncomplicated; E78.00 Pure hypercholesterolemia, unspecified; I10 Essential (primary) hypertension
CPT/HCPCS: 99283

== ENCOUNTER 2019-09-24 12:48 | Emergency (ER) | payer BC ==
--- NOTE | 2019-09-24 14:33 | ER Document Report ---
ED Medical Screen (RME) - General Chief Complaint: Foot Pain Stated Complaint: FOOT PAIN Notes: 49-year-old male with past medical history of hypertension, lower back pain, neuropathy presenting today with a wound on the plantar surface of his right foot right foot at the base of the third MTP. Uncertain as to the cause of the wound. He has had it for 2 months. Denies being diabetic. Also reports that he has been taking antibiotics for this for 2 months. States it has not blistered up since being on the antibiotics. States that the pain did increase today and makes it very hard to walk. Feels like an ice pick is in his foot every time he walks. Feels that the pain is radiating up his leg. Is uncertain as to what antibiotic he has been taking. Was prescribed Bactrim in July. Did take blood pressure medications this am. Denies any fevers or chills or additional symptoms at this time. I have greeted and performed a rapid initial assessment of this patient. A comprehesive ED assessment and evaluation of this patient, analysis of test results and completion of the medical decision-making process will be conducted by additional ED providers. TRAVEL OUTSIDE OF THE [place] IN LAST 30 DAYS: No - Related Data Allergies/Adverse Reactions: dicyclomine [From Bentyl] Allergy (Verified 03/06/19 17:23) Past Medical History - Past Medical History Cardiac Medical History: Reports: Hx Hypercholesterolemia, Hx Hypertension Renal/ Medical History: Denies: Hx Peritoneal Dialysis Musculoskeltal Medical History: Reports Hx Arthritis, Reports Hx Musculoskeletal Deformity, Reports Hx Musculoskeletal Trauma Psychiatric Medical History: Denies: Hx Depression Past Surgical History: Reports: Hx Orthopedic Surgery - L5-S1 laminectomy - Immunizations Hx Diphtheria, Pertussis, Tetanus Vaccination: No Review of Systems - Review of Systems Constitutional: No symptoms reported EENT: No symptoms reported Cardiovascular: No symptoms reported Respiratory: No symptoms reported Genitourinary: No symptoms reported Skin: See HPI Neurological/Psychological: See HPI Physical Exam - Vital signs Vitals: Temp Pulse Resp BP Pulse Ox 98.4 F 98 14 180/120 H 99 09/24/19 12:57 09/24/19 12:57 09/24/19 12:57 09/24/19 12:57 09/24/19 12:57 Interpretation: Hypertensive - Notes Notes: Patient in no acute distress. Walks with a limp due to pain. He has a 1 cm wound on the base of the plantar aspect of the third MTP of his right foot. Area tender to palpation, erythematous, no obvious discharge. Dorsal aspect of foot is tender along the fourth metatarsal. Good dorsalis pedis pulse. Course - Vital Signs Vital signs: Temp Pulse Resp BP Pulse Ox 98.4 F 98 14 180/120 H 99 09/24/19 12:57 09/24/19 12:57 09/24/19 12:57 09/24/19 12:57 09/24/19 12:57
[2019-09-24 15:03] LABS: ABSOLUTE BASOPHILS # (AUTO) 0.1 10^3/uL (0.0-0.2); ABSOLUTE EOSINOPHILS # (AUTO) 0.1 10^3/uL (0.0-0.6); ABSOLUTE LYMPHOCYTES (AUTO) 1.4 10^3/uL (0.5-4.7); ABSOLUTE MONOCYTES (AUTO) 0.5 10^3/uL (0.1-1.4); BASOPHILS % (AUTO) 0.7 % (0-2); EOSINOPHILS % (AUTO) 1.5 % (0-6); HEMOGLOBIN 16.9 g/dL (13.5-17.0); MEAN CORPUSCULAR HEMOGLOBIN 31.8 pg (27.0-33.4); MEAN CORPUSCULAR HGB CONC 35.1 g/dL (32.0-36.0); MEAN CORPUSCULAR VOLUME 91 fl (80-97); PLATELET COUNT 182 10^3/uL (150-450); RED CELL DISTRIBUTION WIDTH 14.8 % (11.5-14.0); SEGMENTED NEUTROPHILS % (AUTO) 74.8 % (42-78); TOTAL CELLS COUNTED % (AUTO) 100 %
[2019-09-24 15:17] LABS: ALBUMIN 4.6 g/dL (3.5-5.0); ALKALINE PHOSPHATASE 56 U/L (38-126); ANION GAP 5 (5-19); ASPARTATE AMINO TRANSFERASE 36 U/L (17-59); BILIRUBIN,TOTAL 0.6 mg/dL (0.2-1.3); BLOOD UREA NITROGEN 9 mg/dL (7-20); CALCIUM 9.6 mg/dL (8.4-10.2); CARBON DIOXIDE 27 mmol/L (22-30); CHLORIDE 106 mmol/L (98-107); GLUCOSE 114 mg/dL (75-110); POTASSIUM 3.9 mmol/L (3.6-5.0); TOTAL PROTEIN 7.7 g/dL (6.3-8.2)
--- NOTE | 2019-09-24 15:35 | RADIOLOGY REPORT (SQ) ---
EXAM DESCRIPTION: FOOT RIGHT 2 VIEWS IMAGES COMPLETED DATE/TIME: 09/24/2019 3:13 pm REASON FOR STUDY: foot pain COMPARISON: None. NUMBER OF VIEWS: Three views. TECHNIQUE: AP, lateral and oblique radiographic images acquired of the right foot. LIMITATIONS: None. FINDINGS: MINERALIZATION: Normal. BONES: No acute fracture or dislocation. No worrisome bone lesions. JOINTS: No effusions. SOFT TISSUES: No soft tissue swelling. No foreign body. OTHER: No other significant finding. IMPRESSION: NEGATIVE STUDY OF THE RIGHT FOOT. NO RADIOGRAPHIC EVIDENCE OF ACUTE INJURY. TECHNICAL DOCUMENTATION: JOB ID: [id number] 2010 [employer]- All Rights Reserved Reading location - IP/workstation name: [email or web address]
--- NOTE | 2019-09-24 16:09 | ER Document Report ---
ED Extremity Problem, Lower - General Chief Complaint: Foot Pain Stated Complaint: FOOT PAIN Time Seen by Provider: 09/24/19 15:24 Primary Care Provider: GIORGIO BLAND MD [Primary Care Provider] - Follow up as needed Mode of Arrival: Ambulatory Information source: Patient TRAVEL OUTSIDE OF THE [place] IN LAST 30 DAYS: No - HPI Notes: Patient presents with a foot wound. Is on the plantar surface at the metatarsal phalangeal joint of the third toe. He states he has had it for 3 weeks. He states it is painful when he walks on it. It is better when he does not walk on it. The pain does radiate up the foot. It is moderate. It is sharp. It is intermittent. He has had no fever sweats or chills no other significant sympt oms. No known injuries or trauma. - Related Data Allergies/Adverse Reactions: dicyclomine [From Bentyl] Allergy (Verified 03/06/19 17:23) Past Medical History - General Information source: Patient - Social History Smoking Status: Current Every Day Smoker Frequency of alcohol use: None Drug Abuse: None Family History: CVA, DM - Past Medical History Cardiac Medical History: Reports: Hx Hypercholesterolemia, Hx Hypertension Renal/ Medical History: Denies: Hx Peritoneal Dialysis Musculoskeletal Medical History: Reports Hx Arthritis, Reports Hx Musculoskeletal Deformity, Reports Hx Musculoskeletal Trauma Psychiatric Medical History: Denies: Hx Depression Past Surgical History: Reports: Hx Orthopedic Surgery - L5-S1 laminectomy - Immunizations Hx Diphtheria, Pertussis, Tetanus Vaccination: No Review of Systems - Review of Systems Constitutional: denies: Chills, Fever Cardiovascular: denies: Chest pain, Palpitations Respiratory: denies: Cough, Short of breath -: Yes All other systems reviewed and negative Physical Exam - Vital signs Vitals: Temp Pulse Resp BP Pulse Ox 98.4 F 98 14 180/120 H 99 09/24/19 12:57 09/24/19 12:57 09/24/19 12:57 09/24/19 12:57 09/24/19 12:57 Interpretation: Hypertensive - General General appearance: Appears well, Alert - HEENT Head: Normocephalic, Atraumatic Eyes: Normal Pupils: PERRL - Respiratory Respiratory status: No respiratory distress Chest status: Nontender Breath sounds: Normal Chest palpation: Normal - Cardiovascular Rhythm: Regular Heart sounds: Normal auscultation Murmur: No - Abdominal Inspection: Normal Distension: No distension Bowel sounds: Normal Tenderness: Nontender Organomegaly: No organomegaly - Back Back: Normal, Nontender - Extremities General upper extremity: Normal inspection, Nontender, Normal color, Normal ROM, Normal temperature General lower extremity: Normal temperature, Other - Plantar surface of the right foot has a linear wound at the metatarsal phalangeal joint on the plantar surface at the base of the third toe. It is down into the dermis. It appears consistent with possible fungal disease.. No: Alba's sign - Neurological Neuro grossly intact: Yes Cognition: Normal Orientation: AAOx4 Garrett Coma Scale Eye Opening: Spontaneous Garrett Coma Scale Verbal: Oriented [place] Coma Scale Motor: Obeys Commands Garrett Coma Scale Total: 15 Speech: Normal Motor strength normal: LUE, RUE, LLE, RLE Sensory: Normal - Psychological Associated symptoms: Normal affect, Normal mood - Skin Skin Temperature: Warm Skin Moisture: Dry Skin Color: Normal - Except as noted above under extremities Course - Re-evaluation Re-evalutation: 09/24/19 16:06 Patient has a wound on the plantar surface. There is no evidence of cellulitis or significant deep infection. X-rays and labs are unremarkable. I discussed athlete's foot with the patient but he states he does not have this and that his toes do not itch. I still am somewhat suspicious that this is the cause of the wound however I will try some mupirocin cream to see if this gives the patient relief. - Vital Signs Vital signs: Temp Pulse Resp BP Pulse Ox 98.4 F 98 14 180/120 H 99 09/24/19 12:57 09/24/19 12:57 09/24/19 12:57 09/24/19 12:57 09/24/19 12:57 - Laboratory Result Diagrams: 09/24/19 14:43 09/24/19 14:43 Laboratory results interpreted by me: 09/24/19 09/24/19 14:43 14:43 RDW 14.8 H Glucose 114 H Discharge - Discharge Clinical Impression: Wound of right foot Condition: Stable Disposition: HOME, SELF-CARE Instructions: Wound Infection ([facility]) Additional Instructions: Please keep area clean and dry Your blood pressure is significantly elevated please take an extra blood pressure pill today. Please contact your primary care provider as soon as possible to discuss control of your blood pressure. You may require an increase of your dosage or a second blood pressure pill. Please have your primary care doctor recheck your blood pressure within the next week. Prescriptions: Mupirocin [Bactroban 2% Ointment 22 gm] 1 applic TP TID #1 tube Tramadol HCl [Ultram] 50 mg PO Q6 PRN 3 Days #12 tablet PRN Reason: Forms: Return to Work, Elevated Blood Pressure Referrals: GIORGIO BLAND MD [Primary Care Provider] - Follow up as needed
[2019-09-24 16:51] VITALS: BP 176/119
== END 2019-09-24 16:53 | disposition home or self-care (01) ==
LOC: ER 12:48
DX: S91.301A Unspecified open wound, right foot, initial encounter (principal); M79.671 Pain in right foot; X58.XXXA Exposure to other specified factors, initial encounter; E78.00 Pure hypercholesterolemia, unspecified; I10 Essential (primary) hypertension; F17.200 Nicotine dependence, unspecified, uncomplicated
CPT/HCPCS: 36415; 80053; 85025; 99283

== ENCOUNTER 2019-10-26 09:26 | Emergency (ER) | payer BC ==
[2019-10-26 09:35] VITALS: BP 165/107
--- NOTE | 2019-10-26 10:26 | RADIOLOGY REPORT (SQ) ---
EXAM DESCRIPTION: FOOT RIGHT COMPLETE IMAGES COMPLETED DATE/TIME: 10/26/2019 9:59 am REASON FOR STUDY: fall injury COMPARISON: 09/24/2019 NUMBER OF VIEWS: Three views. TECHNIQUE: AP, lateral and oblique radiographic images acquired of the right foot. LIMITATIONS: None. FINDINGS: MINERALIZATION: Normal. BONES: Comminuted nondisplaced fracture of the proximal phalanx of the great toe. JOINTS: No effusions. SOFT TISSUES: No soft tissue swelling. No foreign body. OTHER: No other significant finding. IMPRESSION: Comminuted nondisplaced fracture involving the proximal phalanx of the great toe. TECHNICAL DOCUMENTATION: JOB ID: [id number] 2010 [employer]- All Rights Reserved Reading location - IP/workstation name: [email or web address]
--- NOTE | 2019-10-26 10:52 | ER Document Report ---
HPI - HPI Time Seen by Provider: 10/26/19 10:01 Pain Level: 3 Context: Patient is a 49-year-old male who presents to the emergency department with a chief complaint of right great toe pain. Patient states that he stubbed his toe on the stairs. He ended up tripping. Denies any other pain. States that whenever he walks on it, he ends up hurting. He also noticed some discoloration and bruising. - ROS Systems Reviewed and Negative: Yes All other systems reviewed and negative - MUSCULOSKELETAL Musculoskeletal: REPORTS: Extremity pain - See HPI., Swelling - See HPI. - DERM Skin Color: Normal Skin Problems: Bruise - See HPI. Past Medical History - Social History Smoking Status: Never Smoker Frequency of alcohol use: None Drug Abuse: None Family History: CVA, DM - Past Medical History Cardiac Medical History: Reports: Hx Hypercholesterolemia, Hx Hypertension Renal/ Medical History: Denies: Hx Peritoneal Dialysis Musculoskeletal Medical History: Reports Hx Arthritis, Reports Hx Musculoskeletal Deformity, Reports Hx Musculoskeletal Trauma Psychiatric Medical History: Denies: Hx Depression Past Surgical History: Reports: Hx Orthopedic Surgery - L5-S1 laminectomy - Immunizations Hx Diphtheria, Pertussis, Tetanus Vaccination: No Vertical Provider Document - CONSTITUTIONAL Agree With Documented VS: Yes Exam Limitations: No Limitations General Appearance: No Apparent Distress - INFECTION CONTROL TRAVEL OUTSIDE OF THE [place] IN LAST 30 DAYS: No - HEENT HEENT: Atraumatic, Normocephalic, PERRLA - NECK Neck: Normal Inspection - RESPIRATORY Respiratory: No Respiratory Distress - CARDIOVASCULAR Cardiovascular: Regular Rate, Regular Rhythm Pulses: Normal: Posterior tibial, Dorsalis pedis - MUSCULOSKELETAL/EXTREMETIES Musculoskeletal/Extremeties: FROM, Tender - Right proximal great toe, Eccymosis - Right proximal great toe - NEURO Level of Consciousness: Awake, Alert, Appropriate Motor/Sensory: No Motor Deficit, No Sensory Deficit - DERM Integumentary: Warm, Dry, No Rash Course - Re-evaluation Re-evalutation: 10/26/19 10:49 Patient has a comminuted nondisplaced fracture of the proximal phalanx of the great toe. Capillary refill less than 3 seconds. Dorsalis pedis and posterior tibial pulses 2+. No vascular compromise noted. Patient will be placed in Abhishek wrap and postop shoe. He will follow-up with orthopedics. Follow-up precautions were given. Verbal discharge instructions were given to the patient. They verbalized understanding. They are stable for discharge. - Vital Signs Vital signs: Temp Pulse Resp BP Pulse Ox 98.6 F 98 18 165/107 H 99 10/26/19 09:33 10/26/19 09:33 10/26/19 09:33 10/26/19 09:33 10/26/19 09:33 Discharge - Discharge Clinical Impression: Comminuted fracture Fracture of right great toe Qualifiers: Encounter type: initial encounter Fracture type: closed Phalanx: proximal Fracture alignment: nondisplaced Qualified Code(s): S92.414A - Nondisplaced fracture of proximal phalanx of right great toe, initial encounter for closed fracture Condition: Stable Disposition: HOME, SELF-CARE Additional Instructions: You were seen today in the emergency department for right great toe pain. You have a fracture. Please do not walk on your foot. Use the Abhishek wrap to help with swelling. Use the postop shoe to help protect your foot. Use the crutches and stay off your foot. Follow-up with orthopedics within 1 week. Referrals: GIORGIO BLAND MD [Primary Care Provider] - Follow up as needed TONA CHURCHILL JR, DO [ACTIVE PROVISIONAL STAFF] - Follow up in 1 week ANDERS BRODERICK MD [ACTIVE STAFF] - Follow up in 1 week MASHA VILCHIS MD [ACTIVE PROVISIONAL STAFF] - Follow up in 1 week
== END 2019-10-26 11:24 | disposition home or self-care (01) ==
LOC: ER 09:26
DX: S92.414A Nondisplaced fracture of proximal phalanx of right great toe, initial encounter for closed fracture (principal); W18.49XA Other slipping, tripping and stumbling without falling, initial encounter; E78.00 Pure hypercholesterolemia, unspecified; I10 Essential (primary) hypertension
CPT/HCPCS: 99283

== ENCOUNTER 2020-03-31 20:08 | Emergency (ER) | payer BC ==
[2020-03-31 20:32] VITALS: BP 159/96
== END 2020-03-31 21:53 | disposition left against medical advice (07) ==
LOC: ER 20:08
DX: Z53.21 Procedure and treatment not carried out due to patient leaving prior to being seen by health care provider (principal)